=== PATIENT | male | born 1975 | race American Indian/Alaskan Native ===

== ENCOUNTER 2020-09-03 01:37 | Emergency (ER) | payer SELFPAY ==
[2020-09-03 04:10] LABS: Basophils % (Auto) 0.4 % (0.0-1.8); Eosinophils # (Auto) 0.3 K/mm3 (0.0-0.4); Eosinophils % (Auto) 3.3 % (0.0-4.3); Hematocrit 47.5 % (35.5-45.6); Hemoglobin 15.6 gm/dl (11.8-15.2); Lymphocytes # (Auto) 1.8 K/mm3 (1.2-5.4); Mean Corpuscular HGB Conc 33 % (32-34); Mean Corpuscular Volume 87 fl (84-94); Monocytes # (Auto) 0.4 K/mm3 (0.0-0.8); Monocytes % (Auto) 5.4 % (0.0-7.3); Platelet Count 161 K/mm3 (140-440); Red Blood Count 5.46 M/mm3 (3.65-5.03); Red Cell Distribution Width 14.4 % (13.2-15.2)
[2020-09-03 04:31] LABS: Alanine Aminotransferase 29 units/L (7-56); Albumin 4.2 g/dL (3.9-5); BUN/Creatinine Ratio 11; Blood Urea Nitrogen 10 mg/dL (9-20); Calcium 9.8 mg/dL (8.4-10.2); Hemolysis Index 126
[2020-09-03 04:38] LABS: Bilirubin,Urine NEG (Negative); Blood,Urine NEG (Negative); Color,Urine Yellow (Yellow); Mucus,Urine FEW /HPF; Protein,Urine <15 mg/dL mg/dL (Negative)
[2020-09-03] MEDS ORDERED: ONDANSETRON 4 MG/2 ML INJ IV ONE (05:20)
[2020-09-03] MEDS ORDERED: MORPHINE 4 MG/1 ML INJ IV ONE (05:20)
[2020-09-03] MEDS ORDERED: FAMOTIDINE 20 MG/2 ML INJ IV ONE (05:20)
[2020-09-03] MEDS ORDERED: SODIUM CHLORIDE 0.9% 1000 ML 1,000 ML IV ONE (05:21)
--- NOTE | 2020-09-03 06:46 | Cat Scan Report ---
CT ABDOMEN AND PELVIS WITH CONTRAST INDICATION / CLINICAL INFORMATION: PERIUMBILICAL ABDOMINAL PAIN. TECHNIQUE: Axial CT images were obtained through the abdomen and pelvis after 100 cc Omnipaque 300 milligrams pe rcent IV contrast. All CT scans at this location are performed using CT dose reduction for ALARA by means of automated exposure control. COMPARISON: None available. FINDINGS: Exam is of limited diagnostic quality secondary to patient body habitus LOWER CHEST: No significant abnormality. LIVER: No significant abnormality. GALLBLADDER: No significant abnormality. BILE DUCTS: No significant abnormality. PANCREAS: No significant abnormality. SPLEEN: No significant abnormality. ADRENALS: No significant abnormality. RIGHT KIDNEY and URETER: No significant abnormality. LEFT KIDNEY and URETER: No significant abnormality. STOMACH and SMALL BOWEL: Multiple distended loops of small bowel with air-fluid levels present. Surgi izzy changes present involving the stomach. Small hiatal hernia is present COLON: No significant abnormality. APPENDIX: Not identified PERITONEUM: Small ventral wall defect with herniation of fat as well as possible fat necrosis. No def inite evidence of herniation of gastrointestinal contents No free fluid. No free air. No fluid collec tion. LYMPH NODES: No significant adenopathy. AORTA and ARTERIES: No significant abnormality. IVC and VEINS: No significant abnormality. URINARY BLADDER: No significant abnormality. REPRODUCTIVE ORGANS: No significant abnormality. ADDITIONAL FINDINGS: None. SKELETAL SYSTEM: No significant abnormality. IMPRESSION: 1. Small bowel obstruction Signer Name: Ron Macario MD Signed: 09/03/2020 6:42 AM Workstation Name: [id number]
--- NOTE | 2020-09-03 07:26 | Emergency Department Report ---
ED Abdominal Pain HPI - General Chief Complaint: Abdominal Pain Stated Complaint: GASTIC BYPASS/PAIN/CONSTIPATED Time Seen by Provider: 09/03/20 07:20 Source: patient Mode of arrival: Ambulatory Limitations: No Limitations - History of Present Illness Initial Comments: This is a 45-year-old male with nontoxic, well nourished in appearance, no acute signs of distress presents to the ED with c/o of nausea and vomiting and abdominal pain several days. Patient describes vomiting as food content and yellow gastric acid. Patient describes abdominal pain as cramping and aching with level of 8/10 diffuse. Patient denies chest pain, short of breath, fever, hemoptysis, blood in stool, chills, headache, stiff neck, numbness or tingling. Patient denies any diarrhea or constipation. Denies any blood in stool. Patient denies any recent travels. Patient denies any allergies. past medical history of HTN, gastric bypass, and hernia MD Complaint: abdominal pain -: days(s) Location: diffuse Radiation: none Migration to: no migration Severity scale (0 -10): 8 Quality: cramping, aching Consistency: constant Improves With: nothing Worsens With: nothing Associated Symptoms: nausea, vomiting. denies: diarrhea, fever, chills, constipation, dysuria, hematemesis, hematochezia, melena, hematuria, anorexia, syncope - Related Data Allergies Allergy/AdvReac Type Severity Reaction Status Date / Time No Known Allergies Allergy Unverified 09/03/20 03:03 ED Review of Systems ROS: Stated complaint: GASTIC BYPASS/PAIN/CONSTIPATED Other details as noted in HPI Comment: All other systems reviewed and negative Constitutional: denies: chills, fever Eyes: denies: eye pain, eye discharge, vision change ENT: denies: ear pain, throat pain Respiratory: denies: cough, shortness of breath, wheezing Cardiovascular: denies: chest pain, palpitations Endocrine: no symptoms reported Gastrointestinal: abdominal pain, nausea, vomiting. denies: diarrhea, constipation, hematemesis, melena, hematochezia Genitourinary: denies: urgency, dysuria Musculoskeletal: denies: back pain, joint swelling, arthralgia Skin: denies: rash, lesions Neurological: denies: headache, weakness, paresthesias Psychiatric: denies: anxiety, depression Hematological/Lymphatic: denies: easy bleeding, easy bruising ED Past Medical Hx - Past Medical History Previous Medical History?: Yes Hx Hypertension: Yes Hx Diabetes: Yes (States not Diabetic anymore after losing 120lbs) Additional medical history: Hernia, Gastrix Bypass surgery - Surgical History Past Surgical History?: Yes Additional Surgical History: Gastric Bypass surgery ED Physical Exam - General Limitations: No Limitations General appearance: alert, in no apparent distress - Head Head exam: Present: atraumatic, normocephalic - Eye Eye exam: Present: normal appearance - Neck Neck exam: Present: normal inspection, full ROM. Absent: tenderness, meningismus, lymphadenopathy - Respiratory Respiratory exam: Present: normal lung sounds bilaterally. Absent: respiratory distress, wheezes, rales, rhonchi, stridor, chest wall tenderness, accessory muscle use, decreased breath sounds, prolonged expiratory - Cardiovascular Cardiovascular Exam: Present: regular rate, normal rhythm, normal heart sounds. Absent: bradycardia, tachycardia, irregular rhythm, systolic murmur, diastolic murmur, rubs, gallop - GI/Abdominal GI/Abdominal exam: Present: distended, tenderness (diffuse), normal bowel sounds. Absent: guarding, rebound, rigid, diminished bowel sounds - Extremities Exam Extremities exam: Present: normal inspection, full ROM - Back Exam Back exam: Present: normal inspection, full ROM. Absent: tenderness, CVA tenderness (R), CVA tenderness (L), muscle spasm, paraspinal tenderness, verteb ral tenderness, rash noted - Neurological Exam Neurological exam: Present: alert, oriented X3, normal gait - Psychiatric Psychiatric exam: Present: normal affect, normal mood - Skin Skin exam: Present: warm, dry, intact, normal color. Absent: rash ED Course Vital Signs 09/03/20 09/03/20 09/03/20 02:56 05:50 07:55 Temperature 98.7 F Pulse Rate 80 66 Respiratory 18 20 18 Rate Blood Pressure 168/119 173/88 O2 Sat by Pulse 97 97 Oximetry - Reevaluation(s) Reevaluation #1: 09/03/20 07:23 Patient is speaking in full sentences with no signs of distress noted. - Consultations Consultation #1: 09/03/20 07:23 Patient has been consulted with Gini Anthony about patient history, physical exam, and labs/imaging results and agrees to the ED plan of care and admit with general surgery. Consultation #2: 09/03/20 07:40 Patient has been consulted with Dr. Lubin (general surgery) about patient history, physical exam, and labs/CT results and due to history of gastric bypass 8 months ago, Dr. Lubin requested patient to be transferred to a facility with bariatric surgeon and no NG tube to be placed. Consultation #3: 09/03/20 08:26 Patient has been consulted with Dr. Mccarty ([facility] general surgery) and Brody Medley (ED provider) at [facility] facility about patient history, physical exam, and labs/CT scan and accepts patient to service. ED Medical Decision Making - Lab Data Result diagrams: 09/03/20 03:57 09/03/20 03:57 Lab Results 09/03/20 09/03/20 09/03/20 Range/Units 03:57 03:57 04:11 WBC 7.7 (4.5-11.0) K/mm3 RBC 5.46 H (3.65-5.03) M/mm3 Hgb 15.6 H (11.8-15.2) gm/dl Hct 47.5 H (35.5-45.6) % MCV 87 (84-94) fl MCH 29 (28-32) pg MCHC 33 (32-34) % RDW 14.4 (13.2-15.2) % Plt Count 161 (140-440) K/mm3 Lymph % (Auto) 24.0 (13.4-35.0) % [place] % (Auto) 5.4 (0.0-7.3) % Eos % (Auto) 3.3 (0.0-4.3) % Baso % (Auto) 0.4 (0.0-1.8) % Lymph # (Auto) 1.8 (1.2-5.4) K/mm3 Marshall # (Auto) 0.4 (0.0-0.8) K/mm3 Eos # (Auto) 0.3 (0.0-0.4) K/mm3 Baso # (Auto) 0.0 (0.0-0.1) K/mm3 Seg Neutrophils % 66.9 (40.0-70.0) % Seg Neutrophils # 5.1 (1.8-7.7) K/mm3 Sodium 136 L (137-145) mmol/L Potassium 4.9 (3.6-5.0) mmol/L Chloride 97.4 L (98-107) mmol/L Carbon Dioxide 28 (22-30) mmol/L Anion Gap 16 mmol/L BUN 10 (9-20) mg/dL Creatinine 0.9 (0.8-1.3) mg/dL Estimated GFR > 60 ml/min BUN/Creatinine Ratio 11 % Glucose 138 H (75-100) mg/dL Calcium 9.8 (8.4-10.2) mg/dL Total Bilirubin 0.90 (0.1-1.2) mg/dL AST 31 (5-40) units/L ALT 29 (7-56) units/L Alkaline Phosphatase 84 (35-129) units/L Total Protein 8.1 (6.3-8.2) g/dL Albumin 4.2 (3.9-5) g/dL Albumin/Globulin Ratio 1.1 % Lipase 12 L (13-60) units/L Urine Color Yellow (Yellow) Urine Turbidity Clear (Clear) Urine pH 9.0 H (5.0-7.0) Ur Specific [place] 1.014 (1.003-1.030) Urine Protein <15 mg/dl (Negative) mg/dL Urine Glucose (UA) Neg (Negative) mg/dL Urine Ketones Tr (Negative) mg/dL Urine Blood Neg (Negative) Urine Nitrite Neg (Negative) Urine Bilirubin Neg (Negative) Urine Urobilinogen 4.0 (<2.0) mg/dL Ur Leukocyte Esterase Neg (Negative) Urine WBC (Auto) 1.0 (0.0-6.0) /HPF Urine RBC (Auto) 3.0 (0.0-6.0) /HPF U Epithel Cells (Auto) < 1.0 (0-13.0) /HPF Urine Mucus Few /HPF - Radiology Data [facility] [address] [place] [address] Cat Scan Report Signed Patient: VARUN VIERA MR#: [id number] : 1975 Acct:[id number] Age/Sex: 45 / M ADM Date: 09/03/20 Loc: ED Attending Dr: Ordering Physician: PUMA JOSUE Date of Service: 09/03/20 Procedure(s): CT abdomen pelvis w con Accession Number(s): [id number] cc: PUMA JOSUE CT ABDOMEN AND PELVIS WITH CONTRAST INDICATION / CLINICAL INFORMATION: PERIUMBILICAL A BDOMINAL PAIN. TECHNIQUE: Axial CT images were obtained through the abdomen and pelvis after 100 cc Omnipaque 300 milligrams percent IV contrast. All CT scans at this location are performed using CT dose reduction for ALARA by means of automated exposure control. COMPARISON: None available. FINDINGS: Exam is of limited diagnostic quality secondary to patient body habitus LOWER CHEST: No significant abnormality. LIVER: No significant abnormality. GALLBLADDER: No significant abnormality. BILE DUCTS: No significant abnormality. PANCREAS: No significant abnormality. SPLEEN: No significant abnormality. ADRENALS: No significant abnormality. RIGHT KIDNEY and URETER: No significant abnormality. LEFT KIDNEY and URETER: No significant abnormality. STOMACH and SMALL BOWEL: Multiple distended loops of small bowel with air-fluid levels present. Surgical changes present involving the stomach. Small hiatal hernia is present COLON: No significant abnormality. APPENDIX: Not identified PERITONEUM: Small ventral wall defect with herniation of fat as well as possible fat necrosis. No definite evidence of herniation of gastrointestinal contents No free fluid. No free air. No fluid collection. LYMPH NODES: No significant adenopathy. AORTA and ARTERIES: No significant abnormality. IVC and VEINS: No significant abnormality. URINARY BLADDER: No significant abnormality. REPRODUCTIVE ORGANS: No significant abnormality. ADDITIONAL FINDINGS: None. SKELETAL SYSTEM: No significant abnormality. IMPRESSION: 1. Small bowel obstruction Signer Name: Ron Macario MD Signed: 09/03/2020 6:42 AM Workstation Name: [id number] Transcribed By: Dictated By: Ron Macario MD Electronically Authenticated By: Ron Macario MD Signed Date/Time: 09/03/20641 DD/ 7 TD/TT: - Medical Decision Making This is a 45-year-old male that presents with SBO. Patient is stable and was examined by me. Placed patient on NPO. Labs obtained. UA obtained. CT of abdomen obtained and dictated by the radiologist. Patient is notified of the report with no questions noted by the patient. Patient accepted to [facility] facility. Patient transfered to [facility] facility. Vital signs stable at transfer. At time of transfer, the patient does not seem toxic or ill in appearance. No acute signs of distress noted. Patient agrees to transfer treatment plan of care. No further questions noted by the patient. Critical care attestation.: If time is entered above; I have spent that time in minutes in the direct care of this critically ill patient, excluding procedure time. ED Disposition Clinical Impression: Small bowel obstruction, Hiatal hernia Disposition: [id number]/TX-70 ANOTHER TYPE HLTHCARE Is pt being admited?: No Condition: Stable
[2020-09-03 08:01] VITALS: BP 173/88
--- NOTE | 2020-09-03 18:34 | Event Note ---
Date: 09/03/20 Late note: Discussed case with Tavares BARTHOLOMEW. Patient with hx of RNYGB who presents with acute onset n/v, abd pain. Labs and Ct scan A/P reviewed. Patient with findings consistent with SBO. Due to surgical history and these findings, it was felt that patient needed emergent bariatric surgery evaluation. We do not have emergency bariatric coverage at [facility] today. Therefore, I recommended that the patient be transferred to a facility with bariatric surgery availability.
== END 2020-09-03 12:59 | disposition other institution (70) ==
LOC: ED 01:37
DX: K56.609 Unspecified intestinal obstruction, unspecified as to partial versus complete obstruction (principal); K44.9 Diaphragmatic hernia without obstruction or gangrene; I10 Essential (primary) hypertension; Z98.890 Other specified postprocedural states; Z79.899 Other long term (current) drug therapy
CPT/HCPCS: 36415; 74177; 80053; 81001; 83690; 85025; 96361; 96374; 96375; 99285; J2270; J2405; J7030; Q9967